=== PATIENT | male | born 1955 | race Caucasian/White ===

== ENCOUNTER 2018-11-22 11:42 | Inpatient (IN) | payer BC, SELFPAY ==
[2018-11-10 08:53] VITALS: BMI 32.1
[2018-11-22] VITALS (12 sets, daily range): BP systolic 87–165; BP diastolic 45–84; PULSE 51–74; RESP 10–18; TEMP 36.1–36.9; O2SAT 93–98; BMI 32.1
--- NOTE | 2018-11-22 06:00 | DI.RAD.S_ITS ---
PROCEDURE: XR PELVIS 1-2V INDICATIONS: post op right BUZZ TECHNIQUE: 2 view(s) of the pelvis acquired. COMPARISON: None. FINDINGS: Bones: No fractures or dislocations. No suspicious bony lesions. Expected postoperative appearance after right total hip arthroplasty Soft tissues: Visualized bowel gas pattern is normal. No suspicious soft tissue calcifications. IMPRESSION: Expected postoperative appearance after right total hip arthroplasty. Dictated by: Antelmo Fisher M.D. on 11/22/2018 at 16:58 Approved by: Antelmo Fisher M.D. on 11/22/2018 at 16:59
[2018-11-22] MEDS: ACETAMINOPHEN 325 MG TABLET 975 MG PO ×2 (12:31→21:29)
[2018-11-22] MEDS: CELECOXIB 200 MG CAPSULE PO (12:32)
[2018-11-22] MEDS: PREGABALIN 75 MG CAPSULE PO (12:32)
[2018-11-22] MEDS: LACTATED RINGERS 1,000 ML 42 ML IV ×2 (12:47→16:14)
--- NOTE | 2018-11-22 12:53 | PM.PREOP ---
Pre-operative Note Interval Note History & Physical reviewed/Exam performed by Physician: Yes Changes to H&P: No
[2018-11-22] MEDS: CEFAZOLIN 2 GM/100 ML FROZ.PIGGY IV ×2 (14:50→22:55)
--- NOTE | 2018-11-22 15:28 | SUR.OPER ---
Lateral on padded OR bed. Gel axillary roll. Arms secured on padded armboard with pillow supporting top arm. Padded hip positioner braces x4 - anterior and posterior chest and pelvis. Additional gel pad used anterior pelvis. Gel pad under bottom leg from knee to foot and secured with tape over sheet.
[2018-11-22] MEDS: KETOROLAC 30 MG/ML VIAL IV (15:34)
[2018-11-22] MEDS: TRANEXAMIC ACID 1,000 MG VIAL 2000 MG INJ ×2 (15:34→16:07)
[2018-11-22] MEDS: MORPHINE 4 MG/ML INJ INJ (15:35)
[2018-11-22] MEDS: ROPIVACAINE 0.5% PF 5 MG/ML 20ML AMP 60 ML INJ (15:35)
--- NOTE | 2018-11-22 16:28 | PM.OP.1 ---
Operative Date/Time/Diagnoses Date of procedure: 11/22/18 Time of procedure: 16:28 Pre-op diagnosis: Right hip degenerative joint disease Post-op diagnosis: same Procedure & Clinicians Procedure: Conversion of prior hip surgery (screw fixation of slipped capital femoral epiphysis and subsequent hardware removal) to total hip arthroplasty (CPT code 13846 with preschool assistant) Same procedure as scheduled: Yes Indications: Patient is an 63-year-old male with severe right hip DJD secondary to history of SCFE with screw fixation and subsequent hardware removal. The patient has recently had escalation in pain with activities and at rest, limited ambulation and activity tolerance, difficulties with ADLs, and failure of conservative treatment. We have discussed the nature of condition, treatment options, risks and benefits, and patient elects to proceed with total hip arthroplasty and gives informed consent. Surgeon: Seun Porter Owner Operator: Clemente Pino Anesthesia Type: General and Spinal Operative Notes Closure Type: primary Specimen(s): none sent Prosthetic devices, grafts, tissues, transplants, or devices: Acetabulum: Joaquin [employer] Nephew R3 acetabular component size 58 mm Femoral component: Joaquin [employer] Nephew Anthology stem size 8 with high offset Femoral head: 36 mm + 0 Oxinium Estimated Blood Loss (mL): 200 Procedure in detail: After satisfaction induction of anesthetic, and administration of IV antibiotics, the patient was positioned in the lateral decubitus position with all bony prominences well padded and pelvic position secured using a hip talent acquisition project manager positioning device. Right hip and lower extremity prepped and draped in the usual sterile fashion, 1st dose of intravenous tranexamic acid was administered, then a longitudinal incision was created centered over the greater trochanter and carried sharply through the skin and subcutaneous tissues down to the fascia damian which was divided longitudinally and retracted with a Charnley retractor. External rotators visualize, cut, tagged, and retracted posteriorly, then the capsule was cut in a T-type fashion with the corners tagged and retracted. Hip was dislocated and femoral neck cut made according to preoperative templating. Acetabular retractors then placed, and the acetabular labrum and osteophytes were excised. The acetabulum was then sequentially reamed to 57 mm with an excellent circumferential ream and fit with the trial. The trial component was removed and a permanent size 58 mm Joaquin [employer] Nephew R3 acetabular component was selected, positioned, and impacted with satisfactory position and fixation achieved. Permanent liner was then inserted with the elevated lip directed posteriorly. Soft tissue then removed off the lateral femoral neck in the lateral neck was entered using a box osteotome. T-handled reamers placed down the canal followed by sequential broaching to 8 with the final broach left in place for trial reduction which demonstrated excellent leg length, range of motion, and stability characteristics with a high offset neck and 36 mm +0 trial ball. The trial and broach were removed, and a permanent size 8 high offset Joaquin [employer] Nephew Anthology stem was selected and inserted with excellent position and fixation achieved. Another trial reduction yielded the above characteristics so the trial ball was exchanged for a permanent 36 mm +0 Oxinium ball. The hip was irrigated and reduced and excellent leg length range of motion and stability characteristics were achieved and maintained. Periarticular tissues were infiltrated with ropivacaine, Toradol, and morphine. The hip was copiously irrigated, and the capsule repaired with #2 Ethibond, and the piriformis was repaired back to the greater trochanter with the same. Fascia damian closed with interrupted #1 Ethibond sutures, and the subcutaneous tissues were closed in 2 layers of 0 Vicryl and 2 0 Vicryl. Skin was closed with candy and sterile dressings applied. Second dose of tranexamic acid was administered intravenously, and the anesthetic was terminated. Complications: none Condition: stable Disposition: PACU Plan for aftercare: Patient will be admitted to the acute care temple, and anticipate discharge on postop day 1-2 with follow-up in office in 10-14 days. Outpatient physical therapy will be arranged and patient will continue to observe posterior hip precautions. Patient will continue use of postoperative Lovenox for 10 days postop.
--- NOTE | 2018-11-22 16:35 | P.OP_ITS ---
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 The patient has recently had escalation in pain with activities and at rest, limited ambulation and activity tolerance, difficulties with ADLs, and failure of conservative treatment. We have discussed the nature of condition, treatment options, risks and benefits, and patient elects to proceed with total hip arthroplasty and gives informed consent. Surgeon: Seun Porter Rehab Therapist: Clemente Pino Anesthesia Type: General and Spinal Operative Notes Closure Type: primary Specimen(s): none sent Prosthetic devices, grafts, tissues, transplants, or devices: Acetabulum: Joaquin [employer] Nephew R3 acetabular component size 58 mm Femoral component: Joaquin [employer] Nephew Anthology stem size 8 with high offset Femoral head: 36 mm + 0 Oxinium Estimated Blood Loss (mL): 200 Procedure in detail: After satisfaction induction of anesthetic, and administration of IV antibiotics, the patient was positioned in the lateral decubitus position with all bony prominences well padded and pelvic position secured using a hip assistant media buyer positioning device. Right hip and lower extremity prepped and draped in the usual sterile fashion, 1st dose of intravenous tranexamic acid was administered, then a longitudinal incision was created centered over the greater trochanter and carried sharply through the skin and subcutaneous tissues down to the fascia damian which was divided longitudinally and retracted with a Charnley retractor. External rotators visualize, cut, tagged, and retracted posteriorly, then the capsule was cut in a T-type fashion with the corners tagged and retracted. Hip was dislocated and femoral neck cut made according to preoperative templating. Acetabular retractors then placed, and the acetabular labrum and osteophytes were excised. The acetabulum was then sequentially reamed to 57 mm with an excellent circumferential ream and fit with the trial. The trial component was removed and a permanent size 58 mm Joaquin and Nephew R3 acetabular component was selected, positioned, and impacted with satisfactory position and fixation achieved. Permanent liner was then inserted with the elevated lip directed posteriorly. Soft tissue then removed off the lateral femoral neck in the lateral neck was entered using a box osteotome. T- handled reamers placed down the canal followed by sequential broaching to 8 with the final broach left in place for trial reduction which demonstrated excellent leg length, range of motion, and stability characteristics with a high offset neck and 36 mm +0 trial ball. The trial and broach were removed, and a permanent size 8 high offset Joaquin [employer] Nephew Anthology stem was selected and inserted with excellent position and fixation achieved. Another trial reduction yielded the above characteristics so the trial ball was exchanged for a permanent 36 mm +0 Oxinium ball. The hip was irrigated and reduced and excellent leg length range of motion and stability characteristics were achieved and maintained. Periarticular tissues were infiltrated with ropivacaine, Toradol, and morphine. The hip was copiously irrigated, and the capsule repaired with #2 Ethibond, and the piriformis was repaired back to the greater trochanter with the same. Fascia damian closed with interrupted #1 Ethibond sutures, and the subcutaneous tissues were closed in 2 layers of 0 Vicryl and 2 0 Vicryl. Skin was closed with candy and sterile dressings applied. Second dose of tranexamic acid was administered intravenously, and the anesthetic was terminated. Complications: none Condition: stable Disposition: PACU Plan for aftercare: Patient will be admitted to the acute care temple, and anticipate discharge on postop day 1-2 with follow-up in office in 10-14 days. Outpatient physical therapy will be arranged and patient will continue to observe posterior hip precautions. Patient will continue use of postoperative Lovenox for 10 days postop.
[2018-11-22] MEDS: LACTATED RINGERS 1,000 ML 125 ML IV (17:47)
--- NOTE | 2018-11-22 18:10 | PC.NURSE ---
Addendum entered by Abigail Rubio R.N. 11/22/18 23:03: Leodan reports good feeling to bilateral LE's, denies any numbness or tingling. Denies pain. Denies urge to void. Bladder scan = 300 ml. Unable to use urinal. Instructed him to call if he does feel urge, urinary retention/spinal anesthetic explained, we talked about standing order for prn straight cath, he is aware that if he does not void in 1-2 more hours we will need to do another bladder scan. Denies other needs/concerns tonight. spending night on window bench. Original Note: Post-op note: Leodan brought from PACU via hospital bed, alert & oriented x3 and to situation. Joking with staff, appears in good spirits. VS stable, RA oxygen 92-98%, lungs clear. Bulky drsg to right hip is CDI. He reports still numb from waist to toes, cannot wiggle toes or move feet. Pedal pulses are intact. Denies nausea, tolerating clear liquids. Denies urge to void, we talked about numbness & bladder & he said well I do not want my bladder to blow up--that happened to my dad. I told him we would bladder scan him now, he declined. He said he had no urge. I told him if still no void in 2 hours we would do bladder scan. He is agreeable to that. Instructed to call nurse for any needs or concerns. at bedside. After reviewing chart & MAR I observe no orders from anesthesia. There are no orders in 'hold queue.' Due to report of patient having duramorph spinal, I notified PACU Elliot about lack of orders, she stated that Dr Boswell was in surgery at this time & she would pass the message along to him.
[2018-11-23] VITALS: BP 138/83; PULSE 66; RESP 18; TEMP 36.6; O2SAT 97
[2018-11-23] MEDS: LACTATED RINGERS 1,000 ML 125 ML IV (02:36)
--- NOTE | 2018-11-23 04:54 | PC.NURSE ---
Bladder scanned at 0220, 416mL noted. Urinary straight catheter inserted at 0230, 500mL of urine output.
[2018-11-23 05:27] VITALS: BP 141/76; PULSE 61; RESP 17; TEMP 36.7; O2SAT 97
[2018-11-23 05:37] LABS: Hematocrit 34.4 % (41-53); Hemoglobin 12.1 g/dL (13.5-17.5)
[2018-11-23] MEDS: CEFAZOLIN 2 GM/100 ML FROZ.PIGGY IV (06:24)
[2018-11-23 08:00] VITALS: BP 153/99; PULSE 71; RESP 18; TEMP 36.6; O2SAT 97
[2018-11-23] MEDS: ENOXAPARIN 40 MG/0.4 ML SYRINGE SUBCUT (08:18)
--- NOTE | 2018-11-23 08:18 | P.PN_ITS ---
Subjective Date Patient Seen: 11/23/18 Time Patient Seen: 08:16 Interval history: Patient's pain is 2/10. No fever chills. No nausea vomiting. Patient has assistance at home and that would like to go home today if safe to do so. Exam Vital Signs (past 8 hours): - 11/23/18 05:27 Temperature 98.1 F Pulse Rate 61 Respiratory Rate 17 Blood Pressure 141/76 H Pulse Oximetry 97 Oxygen Delivery Method Room Air Oxygen Flow Rate 0 Narrative Exam Narrative: 63-year-old male in no apparent distress. Right hip dressing is clean, dry and intact. Sensation grossly intact to light touch distal right low er extremity. Motor function is intact. Right leg is warm and dry. Objective Labs Result Diagrams: 11/23/18 05:02 Labs: Laboratory Results - last 24 hr 11/23/18 05:02 Hgb 12.1 L Hct 34.4 L Assessment & Plan Post-op Postoperative Procedures Operation Date: 11/22/18 14:30 Actual Procedures Side Surgeon p Total Hip Arthroplasty Right Seun Porter MD Patient progressing as expected status post right total hip arthroplasty. Patient will mobilize with physical therapy. Patient required straight catheterization last night. He was able to void 150 cc on his own this morning but still has 500 per bladder scan. Will start him on Flomax. Possible discharge home later today after PT. Quality VTE Deep Vein Thrombosis/Pulmonary Embolism Present on Admission: No
[2018-11-23] MEDS: ACETAMINOPHEN 325 MG TABLET 975 MG PO (08:20)
--- NOTE | 2018-11-23 09:13 | CM.DANOTE ---
DCP: Case received, EMR reviewed and met with patient's . Introduced self and role. Was able to obtain baseline health information from Ayesha, patient's spouse. Patient is a 63 year old male who admitted yesterday morning to the care of the hospitalist team. PCP: Dr. Kulwant Tobias. Payer: confirmed: [employer]. Patient came to hospital for a surgical procedure. He had total hip arthroplasty. Patient had conversion of total hip from prior hip surgery. Met with , Ayesha, in room. Patient was in restroom, and has been ambulating with no difficulties. stated that he is eager to go, but has to urinate first. She stated that he is independent at home. She stated that patient already has outpatient physical therapy set up. P: DCP to continue to follow. Patient should be able to go home when he is medically stable, and after working with physical therapy team. Maria Del Carmen Treadwell RN/Melt House Centrifugal Operator
--- NOTE | 2018-11-23 09:15 | PT.IIE ---
Current Diagnoses Unilateral primary osteoarthritis, right hip (11/22/18) Surgery Performed Operation Date: 11/22/18 14:30 Actual Procedures p Total Hip Arthroplasty(Right) - Seun Porter MD Surgical History (Last Updated 11/15/18 @ 10:13 by Bertha Mendoza, RN) H/O: vasectomy (Acute) History of colonoscopy (Acute) History of esophagogastroduodenoscopy (EGD) (Acute) History of repair of hiatal hernia (Acute ~2002) Hx of oral surgery (Acute ~2015) Hx of tonsillectomy (Acute) Medical History (Last Updated 11/15/18 @ 10:11 by Bertha Mendoza RN) Amputation of left index finger (Acute ~1973) HLD (hyperlipidemia) (Acute) HTN (hypertension) (Acute) Hemorrhoids (Acute) Physical Therapy Inpatient Evaluation/Re-Eval M1 PT/OT-IP Prior Functional Status Start: 11/23/18 12:48 Freq: NEEDED Status: Active Protocol: Document 11/23/18 09:15 AB (Rec: 11/23/18 13:00 AB [id number]) Medical Review Prior Functional Status Medical History Reviewed Yes Communication able to make needs known Mobility and Gait pt stated that he is indpendent with all mobilities and ambulation without AD Social History Household Members spouse Living Arrangements House Number of Floors (Floors) Two Floors Number of Stairs To Enter/Railing? pt has 2 steps with R rail ascending to enter the house has 13 steps with L rail ascending to get up on bedroom level Home Environment Walk in Shower Built-In Shower Seat Home Equipment Front Wheel Walker Straight Cane Raised Toilet Seat w/Armrests Employment Status Retired Additional Social History Comment spouse stated that shower chair is too low M2 PT-IP Current Condition Start: 11/23/18 12:48 Freq: NEEDED Status: Active Protocol: Document 11/23/18 09:15 AB (Rec: 11/23/18 13:00 AB [id number]) Physical Therapy Current Condition Current Condition Evaluation Date 11/23/18 Treatment Diagnosis s/p R BUZZ posteior approach; difficulty in walking Onset Date 11/22/18 Precautions Posterior Hip Precautions No Hip Flexion > 90 degrees No Hip Internal Rotation No Hip Adduction Weight Bearing Status Weight Bearing Status Weight Bear as Tolerated M3 PT-IP Subjective Start: 11/23/18 12:48 Freq: NEEDED Status: Active Protocol: Document 11/23/18 09:15 AB (Rec: 11/23/18 13:00 AB [id number]) Subjective Physical Therapy Visit Type Type Initial Evaluation Visit Start Time 09:15 Visit Stop Time 10:12 Total Visit Minutes 57 Number of HEAVY REPAIRER Visits 0 Physical Therapy Visit Comments Patient Comments pt agreeable to do PT Therapy Pain Assessment Pain When Pain Assessed At Rest Pain Present Pain Present Pain Reported Location Right Hip Intensity 2 Scale Used Numeric (1 - 10) Pain Management Techniques Apply Cold Re-positioning Timing of Activity with Medications M4 PT-IP Mobility and Gait Start: 11/23/18 12:48 Freq: NEEDED Status: Active Protocol: Document 11/23/18 09:15 AB (Rec: 11/23/18 13:00 AB [id number]) PT-Bed Mobility Assessment Supine to Sit Supine to Sit Standby Assistance Sit to Supine Sit to Supine Standby Assistance PT-Transfer Assessment Sit to and From Stand Sit to and from Stand Standby Assistance Equipment Transfer Assistive Device Gait Belt Front Wheeled Walker Orthotic/Prosthetic Devices or Brace: No Transfers Transfer Destination Bed Transfer Technique pt ambulated using FWW Transfer Ability Level of Assist Standby Assistance Gait Assessment Gait Gait Assistance Required: Standby Assistance Distance (Feet) 250 Able to Maintain Weight Bearing Status Yes During Gait Assistive Devices Assistive Device Gait Belt Front Wheeled Walker Orthotic/Prosthetic Devices or Brace: No Gait Deviations General Gait Pattern Antalgic Decreased Stride Length Decreased Feet Clearance Factors Limiting Gait Function Factors Limiting Gait Function Decreased Activity Tolerance Decreased Strength Limited Range of Motion Pain Poor Balance Stair Climbing Assessment Evaluation Level of Assist On Stairs Contact Guard Assistance 1 Person Assistance Devices Stair Climbing Assistive Devices Straight Cane Left Railing Right Railing Technique/Endurance Stair Climbing Direction Ascend and Descend Stair Climbing Technique Step to Step Number of Steps Climbed 3 Query Text: Stair Climbing Set # Repetitions (reps) 3 Comments Stair Climbing Comments pt completed up/down steps using R rail ascending and SPC and then with L rail ascending /SPC CGA. educated spouse on how to assist pt and pt completed up/down steps again with spouse assisting and spouse was able to assist pt safely. PT-Balance Assessment Sitting Balance and Reactions Static Sitting Balance Ability Good Dynamic Sitting Balance Ability Good Standing Balance and Reactions Static Standing Balance Ability Fair Dynamic Standing Balance Ability Fair Device Used FWW M5 PT-IP Objective Assessments Start: 11/23/18 12:48 Freq: NEEDED Status: Active Protocol: Document 11/23/18 09:15 AB (Rec: 11/23/18 13:00 AB [id number]) Orientation Orientation/Cognition Level of Alertness Alert Orientation Name Place Situation Gross Range of Motion Lower Extremity ROM Assessment Within Functional Limits Strength Lower Extremity Strength Assessment Right Impaired Knee 4-/5 Sensation Assessment Sensation Gross Sensation WNL Muscle Tone Muscle Tone WNL Yes M6 PT-IP Treatment Start: 11/23/18 12:48 Freq: NEEDED Status: Active Protocol: Document 11/23/18 09:15 AB (Rec: 11/23/18 13:00 AB [id number]) Physical Therapy Treatment Education Education Provided Precautions Weight Bearing Status Post-Op Packet Safety M7 PT-IP Assessment and Plan Start: 11/23/18 12:48 Freq: NEEDED Status: Active Protocol: Document 11/23/18 09:15 AB (Rec: 11/23/18 13:00 AB [id number]) PT Summary Assessment and Plan Potential Rehabilitation Potential Good Status of Condition at Evaluation Stable Summary Impairments Pain ROM Strength Balance Coordination Sensation Tone Cognition Bed Mobility Transfers Gait Activity Tolerance Assessment Summary pt requiring SBA with mobility andn CGA with stair climbing. spouse was able to safely assist pt. pt is set up for outpt PT. pt may go home when medically stable. Goals Bed Mobility Goal Independent Transfer Goal Independent Front Wheeled Walker Gait Goal Independent Front Wheel Walker Gait Distance 250 Other Goals up/down 2 steps with R rail ascending SBA ; up/down 13 steps with L rail ascending SBA Days to Meet Goals 3 Frequency of Treatment Frequency Of Treatment Twice a Day Treatment Plan Physical Therapy Treatment Plan Bed Mobility Training Transfer Training Gait Training Therapeutic Exercise Balance Retraining Post Op Education Discharge Planning Hot or Cold Pack Neuromuscular Re-ed Coordination Retraining Manual Therapy Recommendations To Nursing Amount of Assist Needed 1 Person Assist Discharge Recommendations PT Discharge Recommendations Home with Assistance Outpatient PT
[2018-11-23] MEDS: TAMSULOSIN 0.4 MG CAPSULE PO (09:19)
== END 2018-11-23 13:46 | disposition home or self-care (01) | DRG 470 ==
PROVIDERS: Admitting Provider Orthopaedic Surgery; PCP Family Medicine; Visit Provider Orthopaedic Surgery
PROC: 0SR90JZ Replacement of Right Hip Joint with Synthetic Substitute, Open Approach (ICD-10-PCS; CPT 27130; principal; 2018-11-22 14:30)
DX: M16.11 Unilateral primary osteoarthritis, right hip (principal); I10 Essential (primary) hypertension; E78.5 Hyperlipidemia, unspecified; R33.9 Retention of urine, unspecified
CPT/HCPCS: 72170; 85014; 85018; 97161; 97530; C1776; J0690; J1100; J1650; J1885; J2250; J2270; J2274; J2405; J2704; J2795; J3010